=== PATIENT | male | born 1960 | race African-American/Black ===

== ENCOUNTER 2017-09-25 13:14 | Emergency (ER) | payer SELFPAY ==
[2017-09-25] MEDS ORDERED: Ibuprofen 800 MG TAB ONE (13:36)
[2017-09-25] MEDS ORDERED: Sodium Chloride 0.9% 1,000 ML ONE ×2 (13:40→14:44)
[2017-09-25 14:15] LABS: #Basophils 0.2 thou/uL (0.0-0.2); #Lymphocytes 1.8 thou/uL (1.20-3.40); #Monocytes 1.3 thou/uL (0.11-0.59); #Neutrophils 8.8 thou/uL (1.40-6.50); %Basophils 1.4 % (0.0-1.0); %Lymphocytes 15.2 % (21.0-51.0); %Monocytes 10.7 % (0.0-10.0); %Neutrophils 72.7 % (42.0-75.0); Hemoglobin 16.3 g/dL (14.0-18.0); Mean Corpuscular HGB CONC 34.8 g/dL (32.0-36.0); Mean Corpuscular Hemoglobin 33.8 pg (27.0-31.0); Mean Corpuscular Volume 97.1 fl (80.0-94.0); Mean Platelet Volume 9.5 fL (7.4-10.4); Platelet Count 155 thou/uL (130-400); Red Blood Cell (RBC) Count 4.81 mill/uL (4.70-6.10); White Blood Cell (WBC) Count 12.1 thou/uL (4.8-10.8)
[2017-09-25 14:28] LABS: Bilirubin Small (Negative); Blood, Urine Moderate (Negative); Glucose, Urine (Dipstick) Negative (Negative); Leukocyte Negative (Negative); Nitrite Negative (Negative); Protein, Urine (Dipstick) 100 mg/dL (Neg-Trace); Urobilinogen 0.2 mg/dL (0.2-1.0); pH, Urine 5.5 (5.0-9.0)
[2017-09-25 14:29] LABS: ALT (SGPT) 71 U/L (8-55); AST (SGOT) 58 U/L (5-34); Albumin 3.4 g/dL (3.5-5.0); Alkaline Phosphatase 68 U/L (40-150); Anion Gap 15 mmol/L (10-20); BUN (Urea Nitrogen) 14 mg/dL (8.4-25.7); Bilirubin, Total 0.6 mg/dL (0.2-1.2); Calc. Creatinine Clearance 0 mL/min (70-130); Calcium 9.2 mg/dL (7.8-10.44); Carbon Dioxide 20 mmol/L (22-29); Chloride 98 mmol/L (98-107); Estimated GFR-MDRD 83; Globulin 5.8 g/dL (2.4-3.5); Glucose 118 mg/dL (70-105); Potassium 4.2 mmol/L (3.5-5.1); Protein, Total 9.2 g/dL (6.0-8.3); Sodium 129 mmol/L (136-145)
[2017-09-25 14:42] LABS: Bacteria/HPF Rare-Few HPF (None Seen); Clarity SLIGHTLY CLOUDY (Clear); Squamous Epithelial 0-3 HPF (0-3); WBC/HPF 0-3 HPF (0-3)
--- NOTE | 2017-09-25 14:59 | RAD ---
TWO VIEWS CHEST: 09/25/2017 HISTORY: Fever. Rhonchi. Shortness of breath. COMPARISON: 12/27/2010 FINDINGS: There is no pneumothorax, pleural fluid, lobar consolidation, or alveolar edema. When compared to th e prior examination, there has been development of perihilar interstitial prominence with peribronchi al cuffing. IMPRESSION: New interstitial prominence and peribronchial cuffing. This likely represents viral/interstitial pne umonitis. Short-term follow-up imaging is advised to document resolution. CODE T POS: [facility]
== END 2017-09-25 15:28 | disposition home or self-care (01) ==
LOC: NAV ERS 13:14
DX: J18.9 Pneumonia, unspecified organism (principal); F41.9 Anxiety disorder, unspecified; F32.9 Major depressive disorder, single episode, unspecified; F17.210 Nicotine dependence, cigarettes, uncomplicated
CPT/HCPCS: 71046; 80053; 81003; 81015; 83605; 85025; 87040; 87804; 94640; 94760; J7050; J7620

== ENCOUNTER 2017-12-13 08:46 | Emergency (ER) | payer SELFPAY ==
[2017-12-13] MEDS ORDERED: Iopamidol 370 76% 100 ML VIAL ONE (09:00)
[2017-12-13] MEDS ORDERED: Sodium Chloride 0.9% 1,000 ML ONE (09:10)
[2017-12-13] MEDS ORDERED: Ondansetron HCl/PF 4 MG/2 ML Vial ONE (09:10)
[2017-12-13 09:44] LABS: ALT (SGPT) 62 U/L (8-55); AST (SGOT) 39 U/L (5-34); Albumin 3.4 g/dL (3.5-5.0); Alkaline Phosphatase 75 U/L (40-150); Anion Gap 14 mmol/L (10-20); BUN (Urea Nitrogen) 19 mg/dL (8.4-25.7); Calc. Creatinine Clearance 0 mL/min (70-130); Calcium 9.7 mg/dL (7.8-10.44); Carbon Dioxide 26 mmol/L (22-29); Chloride 96 mmol/L (98-107); Estimated GFR-MDRD 69; Globulin 5.1 g/dL (2.4-3.5); Glucose 125 mg/dL (70-105); Lipase 17 U/L (8-78); Potassium 3.6 mmol/L (3.5-5.1); Protein, Total 8.5 g/dL (6.0-8.3); Sodium 132 mmol/L (136-145)
[2017-12-13 09:54] LABS: #Basophils 0.1 thou/uL (0.0-0.2); #Lymphocytes 1.6 thou/uL (1.20-3.40); #Monocytes 1.1 thou/uL (0.11-0.59); #Neutrophils 17.1 thou/uL (1.40-6.50); %Basophils 0.4 % (0.0-1.0); %Lymphocytes 8.1 % (21.0-51.0); %Monocytes 5.5 % (0.0-10.0); Hemoglobin 15.3 g/dL (14.0-18.0); Mean Corpuscular HGB CONC 33.4 g/dL (32.0-36.0); Mean Corpuscular Hemoglobin 32.3 pg (27.0-31.0); Mean Corpuscular Volume 96.7 fl (80.0-94.0); Mean Platelet Volume 9.2 fL (7.4-10.4); Platelet Count 150 thou/uL (130-400); RBC Distribution Width 12.6 % (11.5-14.5); Red Blood Cell (RBC) Count 4.74 mill/uL (4.70-6.10); White Blood Cell (WBC) Count 19.9 thou/uL (4.8-10.8)
[2017-12-13] MEDS ORDERED: Sodium Chloride 0.9% 0 ML ONE (10:16)
[2017-12-13] MEDS ORDERED: Metoclopramide HCl 10 MG/2 ML VIAL ONE ×2 (10:16→11:56)
--- NOTE | 2017-12-13 13:26 | CT ---
ABDOMEN CT WITH CONTRAST PELVIC CT WITH CONTRAST: HISTORY: Nausea, vomiting, and diarrhea. TECHNIQUE: Abdomen and pelvic CT are performed with IV contrast. Enteric contrast was also administered. Coron al reformatted images are submitted for interpretation. FINDINGS: ABDOMEN CT: Interstitial and alveolar opacities in the right lower lobe which may represent pneumonia. A more fo jose j opacity in the central aspect of the interstitial and alveolar infiltrates is noted which may rep resent a possible pneumonia or underlying mass lesion. Short-term followup CT in 4 weeks is recommen ded to ensure resolution. The central opacity measures 2.4 x 2.8 cm. Minimal opacities in the left lower lobe are noted. Minimal opacities in the left lower lobe and lingula are noted. Calcified nod ule in the lingula is also identified. Heart size normal. No pericardial effusion. The descending thoracic aorta and abdominal aorta have a normal caliber. No periaortic fat stranding. Intra- and extrahepatic portal veins are patent. Unremarkable gallbladder. Liver, spleen, pancreas, and adrenal glands have appropriate enhancement. No gastrohepatic, retrocrural, or periportal lymphadenopathy. No mesenteric mass, lymphadenopathy, free air, or free fluid. Symmetric attenuation of the psoas muscles. Visualized alimentary canal is unremarkable. Evaluation is slightly limited by motion degradation. No evidence of small bowel obstruction. Ileocecal junction is grossly unremarkable. A normal-calibe r appendix is identified. Subcentimeter hypodensities in the left and right kidney cannot be adequately characterized but are s tatistically favored to be a cyst. There is a hypodensity in the lower pole of the right kidney naseem uring 1.4 cm with an attenuation coefficient of 23 Hounsfield units. A slightly complex cyst is favo red. Bilaterally, no obstructive uropathy. PELVIC CT: No mass, lymphadenopathy, free air, or free fluid. The urinary bladder is unremarkable. IMPRESSION: 1. Normal-caliber appendix. 2. Possible complex cyst in the lower pole of the right kidney which is incompletely evaluated. Fol lowup ultrasound of the right kidney can be performed. 3. No evidence of bowel obstruction. 4. Normal-caliber appendix. 5. Lung parenchymal opacities as detailed above. A more focal consolidation in the right lower lobe is present. Followup imaging in 4 weeks is recommended to ensure resolution. POS: [facility]
== END 2017-12-13 13:13 | disposition home or self-care (01) ==
LOC: NAV ERS 08:46
DX: J18.9 Pneumonia, unspecified organism (principal); E87.1 Hypo-osmolality and hyponatremia; K21.9 Gastro-esophageal reflux disease without esophagitis; F41.9 Anxiety disorder, unspecified; F32.9 Major depressive disorder, single episode, unspecified; Z71.6 Tobacco abuse counseling; F17.210 Nicotine dependence, cigarettes, uncomplicated
CPT/HCPCS: 74177; 80053; 83690; 85025; 96361; 96374; 96375; 96376; J2405; J2765; J7050

== ENCOUNTER 2018-03-09 13:38 | Emergency (ER) | payer SELFPAY ==
[2018-03-09] MEDS ORDERED: Indomethacin 25 mg Capsule ONE (14:13)
== END 2018-03-09 14:23 | disposition home or self-care (01) ==
LOC: NAV ERS 13:38
DX: M10.9 Gout, unspecified (principal); K21.9 Gastro-esophageal reflux disease without esophagitis; F41.9 Anxiety disorder, unspecified; F32.9 Major depressive disorder, single episode, unspecified; F17.210 Nicotine dependence, cigarettes, uncomplicated
CPT/HCPCS: 99283

== ENCOUNTER 2018-10-11 01:26 | Emergency (ER) | payer SELFPAY ==
[2018-10-11 02:16] LABS: #Basophils 0.1 thou/uL (0.0-0.2); #Lymphocytes 2.6 thou/uL (1.20-3.40); #Monocytes 0.7 thou/uL (0.11-0.59); #Neutrophils 3.1 thou/uL (1.40-6.50); %Basophils 1.2 % (0.0-1.0); %Eosinophils 0.4 % (0.0-10.0); %Lymphocytes 40.8 % (21.0-51.0); %Neutrophils 47.6 % (42.0-75.0); Acetaminophen Less than 6.0 mcg/mL (10.0-30.0); Alcohol Less than 10 mg/dL (Less than 10); Hemoglobin 14.8 g/dL (14.0-18.0); Mean Corpuscular HGB CONC 32.6 g/dL (32.0-36.0); Mean Corpuscular Hemoglobin 32.8 pg (27.0-31.0); Mean Platelet Volume 9.1 fL (7.4-10.4); Platelet Count 181 thou/uL (130-400); RBC Distribution Width 13.6 % (11.5-14.5); Salicylate Less than 8.0 mg/dL (15.0-30.0); White Blood Cell (WBC) Count 6.4 thou/uL (4.8-10.8)
[2018-10-11 02:17] LABS: ALT (SGPT) 110 U/L (8-55); AST (SGOT) 75 U/L (5-34); Albumin 3.6 g/dL (3.5-5.0); Alkaline Phosphatase 114 U/L (40-150); Anion Gap 13 mmol/L (10-20); BUN (Urea Nitrogen) 17 mg/dL (8.4-25.7); Bilirubin, Total 0.5 mg/dL (0.2-1.2); Calc. Creatinine Clearance 0 mL/min (70-130); Calcium 9.7 mg/dL (7.8-10.44); Carbon Dioxide 22 mmol/L (22-29); Chloride 105 mmol/L (98-107); Estimated GFR-MDRD Greater than 90; Globulin 5.4 g/dL (2.4-3.5); Glucose 102 mg/dL (70-105); Potassium 3.4 mmol/L (3.5-5.1); Sodium 137 mmol/L (136-145)
[2018-10-11 03:36] LABS: Bilirubin Small (Negative); Blood, Urine Trace (Negative); Clarity Clear (Clear); Glucose, Urine (Dipstick) Negative (Negative); Leukocyte Negative (Negative); Nitrite Negative (Negative); Protein, Urine (Dipstick) Negative (Neg-Trace); pH, Urine 5.5 (5.0-9.0)
[2018-10-11 03:39] LABS: Bacteria/HPF None Seen HPF (None Seen); RBC/HPF 0-3 HPF (0-3); Squamous Epithelial 0-3 HPF (0-3); WBC/HPF None Seen HPF (0-3)
[2018-10-11 03:40] LABS: Phencyclidine (PCP) Not Detected (NotDetected); THC/Cannabinoid Screen Detected (NotDetected)
[2018-10-11 03:41] LABS: Amphetamine Not Detected (NotDetected); Barbiturates Screen Not Detected (NotDetected); Benzodiazepine Screen Not Detected (NotDetected); Cocaine Metabolite Screen Detected (NotDetected); Medtox Control Line Valid? VALID (VALID); Methadone Not Detected (NotDetected); Methamphetamine Not Detected (NotDetected); Opiate Screen Not Detected (NotDetected); Oxycodone Screen Not Detected (NotDetected); Tricyclic Screen Not Detected (NotDetected)
== END 2018-10-11 06:50 | disposition short-term general hospital (02) ==
LOC: NAV ERS 01:26
DX: F22 Delusional disorders (principal); I10 Essential (primary) hypertension; R45.851 Suicidal ideations; F41.9 Anxiety disorder, unspecified; F32.9 Major depressive disorder, single episode, unspecified; F17.210 Nicotine dependence, cigarettes, uncomplicated
CPT/HCPCS: 80053; 80306; 80307; 81003; 81015; 84443; 85025

== ENCOUNTER 2021-05-06 19:40 | Emergency (ER) | payer MEDICAID, SELFPAY ==
[2021-05-06 20:35] LABS: #Basophils 0.1 thou/uL (0.0-0.2); #Lymphocytes 2.4 thou/uL (1.20-3.40); #Monocytes 1.1 thou/uL (0.11-0.59); #Neutrophils 5.2 thou/uL (1.40-6.50); %Basophils 1.2 % (0.0-1.0); %Eosinophils 0.3 % (0.0-10.0); %Lymphocytes 27.3 % (21.0-51.0); %Monocytes 12.4 % (0.0-10.0); %Neutrophils 58.8 % (42.0-75.0); Hemoglobin 14.7 g/dL (14.0-18.0); Mean Corpuscular HGB CONC 32.3 g/dL (32.0-36.0); Mean Corpuscular Hemoglobin 33.7 pg (27.0-31.0); Mean Platelet Volume 9.8 fL (7.4-10.4); Platelet Count 172 thou/uL (130-400); RBC Distribution Width 13.4 % (11.5-14.5); Red Blood Cell (RBC) Count 4.35 mill/uL (4.70-6.10); White Blood Cell (WBC) Count 8.9 thou/uL (4.8-10.8)
[2021-05-06 20:50] LABS: ALT (SGPT) 41 U/L (8-55); AST (SGOT) 31 U/L (5-34); Albumin 3.6 g/dL (3.5-5.0); Alkaline Phosphatase 82 U/L (40-110); Anion Gap 14 mmol/L (10-20); BUN (Urea Nitrogen) 19 mg/dL (8.4-25.7); Bilirubin, Total 0.4 mg/dL (0.2-1.2); CK (CPK) 159 U/L (30-200); Calc. Creatinine Clearance 0 mL/min (70-130); Calcium 8.9 mg/dL (7.8-10.44); Carbon Dioxide 19 mmol/L (22-29); Chloride 108 mmol/L (98-107); Globulin 4.4 g/dL (2.4-3.5); Glucose 122 mg/dL (70-105); Magnesium 1.8 mg/dL (1.6-2.6); Potassium 4.2 mmol/L (3.5-5.1); Sodium 137 mmol/L (136-145)
[2021-05-06] MEDS ORDERED: HYDROcodone/Acetaminophen 5/325 mg Tablet ONE (21:58)
== END 2021-05-06 22:20 | disposition home or self-care (01) ==
LOC: NAV ERS 19:40
DX: R55 Syncope and collapse (principal); S43.402A Unspecified sprain of left shoulder joint, initial encounter; S00.01XA Abrasion of scalp, initial encounter; I10 Essential (primary) hypertension; K21.9 Gastro-esophageal reflux disease without esophagitis; F17.210 Nicotine dependence, cigarettes, uncomplicated; X58.XXXA Exposure to other specified factors, initial encounter
CPT/HCPCS: 36415; 70450; 80053; 82550; 83735; 84484; 85025; 93005; 94760

== ENCOUNTER → 2021-08-05 | Emergency (ER) | payer OTHER ==
[~2021-08-05] MED LIST: Ondansetron PF 4 MG/2 ML Vial ONE; Pantoprazole 40 MG VIAL ONE; Sodium Chloride 0.9% 1,000 ML ONE
[2021-08-05 12:13] LABS: #Basophils 0.1 thou/uL (0.0-0.2); #Lymphocytes 1.6 thou/uL (1.20-3.40); #Monocytes 1.2 thou/uL (0.11-0.59); #Neutrophils 8.9 thou/uL (1.40-6.50); %Basophils 0.5 % (0.0-1.0); %Lymphocytes 13.7 % (21.0-51.0); %Monocytes 10.3 % (0.0-10.0); %Neutrophils 75.4 % (42.0-75.0); Hemoglobin 13.9 g/dL (14.0-18.0); Mean Corpuscular HGB CONC 33.3 g/dL (32.0-36.0); Mean Corpuscular Hemoglobin 33.3 pg (27.0-31.0); Mean Platelet Volume 8.5 fL (7.4-10.4); Platelet Count 174 thou/uL (130-400); RBC Distribution Width 12.6 % (11.5-14.5); Red Blood Cell (RBC) Count 4.17 mill/uL (4.70-6.10); White Blood Cell (WBC) Count 11.8 thou/uL (4.8-10.8)
[2021-08-05 12:35] LABS: ALT (SGPT) 44 U/L (8-55); AST (SGOT) 32 U/L (5-34); Albumin 3.6 g/dL (3.5-5.0); Alkaline Phosphatase 79 U/L (40-110); Anion Gap 14 mmol/L (10-20); BUN (Urea Nitrogen) 18 mg/dL (8.4-25.7); Bilirubin, Total 0.8 mg/dL (0.2-1.2); Calc. Creatinine Clearance 0 mL/min (70-130); Carbon Dioxide 30 mmol/L (22-29); Chloride 97 mmol/L (98-107); Glucose 158 mg/dL (70-105); Lipase 12 U/L (8-78); Potassium 3.2 mmol/L (3.5-5.1); Protein, Total 8.6 g/dL (6.0-8.3); Sodium 138 mmol/L (136-145)
== END ==
LOC: NAV ERS 11:36
DX: J18.9 Pneumonia, unspecified organism (principal); E87.6 Hypokalemia; R11.2 Nausea with vomiting, unspecified; K21.9 Gastro-esophageal reflux disease without esophagitis; E78.00 Pure hypercholesterolemia, unspecified; I10 Essential (primary) hypertension; F17.210 Nicotine dependence, cigarettes, uncomplicated; Z79.899 Other long term (current) drug therapy
CPT/HCPCS: 71045; 80053; 83605; 83690; 85025; 87040; 87804; 93005; 96361; 96365; 96375; C9113; J1956; J2405; J7050

== ENCOUNTER 2023-11-13 12:23 | Emergency (ER) | payer OTHER ==
[2023-11-13] MEDS ORDERED: Activated Charcoal/Sorbitol 25 GM/120 ML TUBE ONE (12:56)
[2023-11-13] MEDS ORDERED: Ondansetron PF 4 MG/2 ML Vial ONE ×3 (12:56→19:08)
[2023-11-13 13:12] LABS: #Basophils 0.1 thou/uL (0.0-0.2); #Eosinphils 0.5 thou/uL (0.0-0.7); #Monocytes 0.3 thou/uL (0.11-0.59); #Neutrophils 1.7 thou/uL (1.40-6.50); %Basophils 2.2 % (0.0-1.0); %Eosinophils 8.6 % (0.0-10.0); %Lymphocytes 54.3 % (21.0-51.0); %Monocytes 4.8 % (0.0-10.0); Hematocrit 48.4 % (42.0-52.0); Hemoglobin 15.7 g/dL (14.0-18.0); Mean Corpuscular HGB CONC 32.4 g/dL (32.0-36.0); Mean Corpuscular Hemoglobin 31.8 pg (27.0-31.0); Mean Corpuscular Volume 98.3 fl (78.0-98.0); Mean Platelet Volume 8.8 fL (7.4-10.4); Platelet Count 157 10x3/uL (130-400); RBC Distribution Width 12.1 % (11.5-14.5); Red Blood Cell (RBC) Count 4.92 mill/uL (4.70-6.10); White Blood Cell (WBC) Count 5.6 10x3/uL (4.8-10.8)
[2023-11-13 13:26] LABS: Troponin I 0.022 ng/mL (< 0.028)
[2023-11-13 13:27] LABS: Acetaminophen Less than 10 mcg/mL (10.0-30.0); Alcohol Less than 10.0 mg/dL (Less than 10); Lipase 93 U/L (8-78); Salicylate Less than 8.0 mg/dL (15.0-30.0)
[2023-11-13 13:28] LABS: Bilirubin Small (Negative); Blood, Urine Negative (Negative); Clarity Clear (Clear); Glucose, Urine (Dipstick) Negative (Negative); Ketone, Urine Negative (Negative); Leukocyte Negative (Negative); Nitrite Negative (Negative); Protein, Urine (Dipstick) 30 mg/dL (Neg-Trace); Specific Gravity, Urine 1.015 (1.005-1.030); pH, Urine 7.5 (5.0-9.0)
[2023-11-13 13:29] LABS: RBC/HPF 0-3 HPF (0-3)
[2023-11-13 13:32] LABS: ALT (SGPT) 25 U/L (8-55); AST (SGOT) 33 U/L (5-34); Albumin 4.4 g/dL (3.4-4.8); Alkaline Phosphatase 93 U/L (40-110); BUN (Urea Nitrogen) 39 mg/dL (8.4-25.7); Bilirubin, Total 0.7 mg/dL (0.2-1.2); Calc. Creatinine Clearance 0 mL/min (70-130); Calcium 10.1 mg/dL (7.8-10.44); Estimated GFR 22; Globulin 4.5 g/dL (2.4-3.5); Glucose 141 mg/dL (80-115); Protein, Total 8.9 g/dL (5.8-8.1)
[2023-11-13 13:35] LABS: Amphetamine Not Detected (NotDetected); Barbiturates Screen Not Detected (NotDetected); Benzodiazepine Screen Not Detected (NotDetected); Cocaine Metabolite Screen Detected (NotDetected); Methadone Not Detected (NotDetected); Methamphetamine Not Detected (NotDetected); Opiate Screen Not Detected (NotDetected); Oxycodone Screen Not Detected (NotDetected); Phencyclidine (PCP) Not Detected (NotDetected); THC/Cannabinoid Screen Detected (NotDetected); Tricyclic Screen Not Detected (NotDetected)
[2023-11-13 13:37] LABS: Potassium 2.5 mmol/L (3.5-5.1)
[2023-11-13 13:39] LABS: Chloride 86 mmol/L (98-107); Sodium 141 mmol/L (136-145)
[2023-11-13 13:40] LABS: Carbon Dioxide 36 mmol/L (23-31)
[2023-11-13 13:44] LABS: Anion Gap 25 mmol/L (10-20)
[2023-11-13] MEDS ORDERED: NS 0.9% w/ 20 MEQ KCL 1,000 ML ONE ×2 (14:45→16:57)
[2023-11-13 15:08] LABS: Base Excess-Venous 13.1 mmol/L (-2.0 to 3.0); Bicarbonate (HCO3v) 39.7 mmol/L (22.0-28.0); CO2 Tension (PvCO2) 54.1 mmHg (42.0-51.0); Calcium, Ionized 1.04 mmol/L (1.15-1.33); Chloride 92 mmol/L (98-107); Hemoglobin - Calc 17.5 g/dL (14.0-18.0); Potassium 2.3 mmol/L (3.5-5.1); Sodium 142 mmol/L (138-145); T. Carbon Dioxide 41.4 mmol/L (22.0-28.0); vO2 Saturation-calc 94.6 % (60.0-85.0)
[2023-11-13 17:17] LABS: Bicarbonate (HCO3v) 39.4 mmol/L (22.0-28.0); CO2 Tension (PvCO2) 48.4 mmHg (42.0-51.0)
[2023-11-13 17:18] LABS: Base Excess-Venous 14.1 mmol/L (-2.0 to 3.0); Calcium, Ionized 1.01 mmol/L (1.15-1.33); Chloride 94 mmol/L (98-107); Hemoglobin - Calc 17.2 g/dL (14.0-18.0); Potassium 2.8 mmol/L (3.5-5.1); Sodium 143 mmol/L (138-145); T. Carbon Dioxide 40.9 mmol/L (22.0-28.0)
== END 2023-11-13 18:15 | disposition short-term general hospital (02) ==
LOC: NAV ERS 12:23
DX: T14.91XA Suicide attempt, initial encounter (principal); R11.2 Nausea with vomiting, unspecified; F17.210 Nicotine dependence, cigarettes, uncomplicated; I10 Essential (primary) hypertension; K21.9 Gastro-esophageal reflux disease without esophagitis; Z79.899 Other long term (current) drug therapy
CPT/HCPCS: 36415; 80053; 80306; 80307; 81001; 82330; 82803; 83690; 84484; 85025; 93005; 96365; 96366; 96375; 96376; J2405; J3480